=== PATIENT | female | born 1955 | race Caucasian/White ===

== ENCOUNTER → 2016-09-05 | Outpatient (CLI) | payer OTHER ==
[~2016-09-05] MED LIST: ACCU-CHEK COMB1 EACH; ACETAMINOPHEN PO; ACTOS; ALPRAZOLAM PO; AMARYL; AMLODIPINE BESY10 MG PO; AMLODIPINE BESYL5 MG PO; APIDRA; APIDRA (NF100 UNITS/; APIDRA INSULIN PUMP; APIDRA SOL100 UNIT/1; APIDRA SUBQ; APIDRA100 U/ML; ASPIRIN; ASPIRIN ENTERI325 M1 PO; ASPIRIN PO; ASPIRIN325 M1 PO; BYETTA10 MCG/0.0; BYETTA10 MCG/0.0 INJ; COLACE PO; COUMADIN PO; DEMEROL50 MG PO; ECOTRIN81 M1 PO; EFFEXOR XR; FERRO-TIME325 MG PO; GABAPENTIN300 M2 PO; HUMALOG100 U/ML; HUMULIN R500 U/ML; HYDROCHLOROTH12.5 M1 PO; INSULIN PUMP; IRON TABLET1 EACH PO; LANTUS100 U/ML SQ; LASIX20 MG PO; LEVOTHROID25 MCG PO; LEVOTHYROXINE75 MCG PO; LEVOXYL50 MC1 PO; LEXAPRO PO; LISINOPRIL PO; LISINOPRIL-HCTZ1 T14; LISINOPRIL-HCTZ1 T14 PO; LOPRESSOR PO; LOVENOX SUBQ; LYRICA25 MG PO; METFORMIN PO; NADOLOL20 MG PO; NEURONTIN PO; NEURONTIN300 MG PO; NITROGYLCERIN SUBLINGUAL; NORVASC10 MG PO; OMNICEF300 M1 PO; OYSTER CALCIUM500 MG PO; PAIN RELIEF325 MG PO; PANTOPRAZOLE SO40 MG PO; PHENERGAN SUPP25 M1 PO; PHENERGAN SUPP25 MG PR; PLAVIX; PROTONIX PO; PULMICORT0.25 MG/2 INH; SYMBICORT INHALER; SYNTHROID75 MCG PO; TRAMADOL HCL50 M2 PO; VITAMIN B122500 MCG PO; VITAMIN D35000 UNI1 PO; VITAMIN D35000 UNIT PO; VITAMIN D350000 UNIT PO; XANAX0.5 MG PO; ZESTORETIC 20-1 EAC1 PO; ZESTORETIC 20/11 TAB PO; ZITHROMAX500 MG PO; ZOFRAN PO; [UNRECOGNIZED DRUG - OTHER]; [UNRECOGNIZED DRUG - OTHER] PO
--- NOTE | ~2016-09-05 | US85 ---
[facility]. [facility] A Service of [facility] & [facility] RADIOLOGY TEXT RESULTS PATIENT: JOSE FAROOQ LOCATION: SNIV : 53 UNIT #: [id number] AGE: [address]: ASTER ZUNIGA APRN SEX: F ORDER DR: [id number] [address] [id number] O MR#: [id number] Acc #: [id number] NAME: JOSE FAROOQ : 1955 SEX: F STUDY DATE/TIME: 09/05/2016 13:43 UNIT: SNIV ROOM: STUDY DESCRIPTION: US [employer] Stdy Attending Physician: Aster Zuniga Aprn Referring Physician: Aster Zuniga Aprn Ordering Physician: Aster Zuniga Aprn Primary Care Physician: Romero John M.D. MEDICAL IMAGING REPORT This report is preliminary unless electronic signature is present. EXAM Left lower extremity venous ultrasound 09/05/2016 HISTORY Swelling Thursday. The patient has had previous DVT in 1990. Not currently taking any blood thinners. FINDINGS The venous system of the lower extremity was evaluated. There is flow and compression in the common femoral and deep femoral vein. In the superficial femoral vein there is nonocclusive echogenic thrombus along the anterior wall suggesting chronic thrombus. The popliteal, anterior tibial, posterior tibial and peroneal veins and saphenous vein are patent. IMPRESSION There is a small amount of echogenic nonocclusive adherent thrombus in the superficial femoral vein on the left suggesting chronic DVT. No acute DVT is identified. Dictated by... Himanshu York M.D. THIS IS AN ELECTRONICALLY VERIFIED REPORT Himanshu York M.D. at 09/05/2016 4:49 PM Bharath TD: 09/05/2016 16:43 JOB #: [id number] MEDICAL IMAGING REPORT Page 1 of 1
== END | disposition home or self-care (01) ==
LOC: SNIV 13:03
DX: I74.9 Embolism and thrombosis of unspecified artery (principal); I82.412 Acute embolism and thrombosis of left femoral vein
CPT/HCPCS: 93971